=== PATIENT | male | born 1930 | race Caucasian/White ===

== ENCOUNTER 2017-04-12 07:49 | Day surgery (SDC) | payer OTHER ==
[~2017-04-12] VITALS: Ht 180.3 cm; Wt 83.5 kg
[~2017-04-12 07:49] MED LIST: ACETAMINOPHEN 325 MG TAB PO PRN; CYCLOPENTOLATE 2% OPHTH SOLN 2ML BTL OS ONE; LIDOCAINE 3.5 % 1ML OPHTH TOPICAL GEL OU ONE; OFLOXACIN 0.3 % (OCUFLOX) OPTH SOL 5ML OS ONE; OMEP20CA3 PO; PHENYLEPHRINE 2.5% OPHTH SOL 2ML OS ONE; PHENYLEPHRINE HCL 10 % OPHTH. SOL 5ML OS PRN; PROPARACAINE 0.5% OPHTH SOL 15ML OS PRN; SB L81TA; TROPICAMIDE 1% OPHTH SOLN 2ML OS ONE
[2017-04-12] MEDS ORDERED: D5W/0.2% SODIUM CHLORIDE 1,000 ML IV ONE (08:00)
[2017-04-12] MEDS ORDERED: POVIDONE-IODINE 5% OPHTH PREP SOL 30ML As Ordered ONE (08:53)
[2017-04-12] MEDS ORDERED: LIDOCAINE 1% SDV 5 ML VIAL As Ordered ONE (08:53)
[2017-04-12] MEDS ORDERED: ACETYLCHOLINE OPHTH SOLN 1% 2ML (MIOCHOL-E) As Ordered ONE (08:53)
[2017-04-12] MEDS ORDERED: CEFUROXIME 1MG/0.1ML INTRACAMERAL INJ As Ordered ONE (08:53)
[2017-04-12] MEDS ORDERED: HEALON DUET (HEALON 10MG/ML 0.55ML & HEALON ENDOCOAT 30MG/ML 0.85ML) As Ordered ONE (08:53)
[2017-04-12] MEDS ORDERED: fentaNYL 100 MCG/2 ML INJECTION (J3010) As Ordered ONE (09:06)
[2017-04-12] MEDS ORDERED: MIDAZOLAM INJ 2 MG/2 ML VIAL (J2250) As Ordered ONE (09:06)
[2017-04-12] MEDS ORDERED: AcetaZOLAMIDE 500 MG ER CAP As Ordered ONE (10:10)
[2017-04-12 10:15] VITALS: BP 162/69
[2017-04-12] MEDS ORDERED: AcetaZOLAMIDE 500 MG ER CAP PO ONE (10:45)
[2017-04-12] MEDS ORDERED: KETOROLAC 0.5% OPHTH SOLN OS ONE (10:45)
[2017-04-12] MEDS ORDERED: TRIMETHOBENZAMIDE 300 MG CAP PO PRN (10:45)
--- NOTE | 2017-04-12 17:35 | RO ---
DATE OF PROCEDURE: 04/12/2017 PREPROCEDURE DIAGNOSIS: Age-related nuclear cataract left eye. POSTPROCEDURE DIAGNOSIS: Age-related nuclear cataract left eye. PROCEDURE: Phacoemulsification and posterior chamber intraocular lens implantation. The lens used was [id number] 18.0 diopter. SURGEON: Taylor Bunn MD CLEAT THROWER: ANESTHESIA: Topical with sedation. DESCRIPTION OF PROCEDURE: The patient was prepped and draped in the usual fashion. A lid speculum was placed between the lids. The eye was fixated. A stab incision was made to the anterior chamber, and 1% non-preserved lidocaine was instilled. Then, viscoelastic was instilled. The eye was re-fixated. A 2.75 mm sapphire keratome was used to make a clear corneal temporal limbal incision. Capsulorrhexis was begun with a 30-gauge bent needle and then carried out in a circular fashion with capsulorrhexis forceps. The lens was hydrodissected, and then the phacoemulsification unit was used to make a groove in the nucleus in two meridians. The nucleus was then cracked into four quadrants. Each quadrant was removed with the phacoemulsification unit. Any remaining cortex was removed with the irrigation and aspiration (I and A) unit. Capsular bag was refilled with viscoelastic. A posterior chamber intraocular lens was placed in the capsular bag without difficulty. Any remaining viscoelastic was removed with the I and A unit. The wound was hydrated, and Miochol and cefuroxime were instilled into the anterior chamber. The patient tolerated the procedure well and went to the recovery room in stable condition.
== END 2017-04-12 10:21 | disposition home or self-care (01) ==
LOC: M SDC 07:49
PROVIDERS: ATTEND Ophthalmology
DX: H25.12 Age-related nuclear cataract, left eye (principal); K21.9 Gastro-esophageal reflux disease without esophagitis; R06.83 Snoring; Z72.0 Tobacco use; Z96.653 Presence of artificial knee joint, bilateral; Z79.899 Other long term (current) drug therapy; Z79.82 Long term (current) use of aspirin

== ENCOUNTER 2017-06-28 09:57 | Day surgery (SDC) | payer OTHER ==
[2017-06-28] MEDS: BALANCED SALT IRRIGATION SOLUTION 500ML BAG (FOR OR EYE MACHINE) As Ordered (07:05)
[~2017-06-28 09:57] MED LIST changes: +ACETAMINOPHEN 325 MG TAB PO; -ACETAMINOPHEN 325 MG TAB PO PRN; +CYCLOPENTOLATE 2% OPHTH SOLN 2ML BTL OD; -CYCLOPENTOLATE 2% OPHTH SOLN 2ML BTL OS ONE; +LIDOCAINE 3.5 % 1ML OPHTH TOPICAL GEL OU; -LIDOCAINE 3.5 % 1ML OPHTH TOPICAL GEL OU ONE; +MIDAZOLAM INJ 2 MG/2 ML VIAL (J2250) As Ordered; +OFLOXACIN 0.3 % (OCUFLOX) OPTH SOL 5ML OD; -OFLOXACIN 0.3 % (OCUFLOX) OPTH SOL 5ML OS ONE; -OMEP20CA3 PO; +PHENYLEPHRINE 2.5% OPHTH SOL 2ML OD; -PHENYLEPHRINE 2.5% OPHTH SOL 2ML OS ONE; +PHENYLEPHRINE HCL 10 % OPHTH. SOL 5ML OD; -PHENYLEPHRINE HCL 10 % OPHTH. SOL 5ML OS PRN; +PROPARACAINE 0.5% OPHTH SOL 15ML OD; -PROPARACAINE 0.5% OPHTH SOL 15ML OS PRN; -SB L81TA; +TROPICAMIDE 1% OPHTH SOLN 2ML OD; -TROPICAMIDE 1% OPHTH SOLN 2ML OS ONE; +fentaNYL 100 MCG/2 ML INJECTION (J3010) As Ordered
[2017-06-28] MEDS ORDERED: TROPICAMIDE 1% OPHTH SOLN 2ML As Ordered (10:13)
[2017-06-28] MEDS ORDERED: CYCLOPENTOLATE 2% OPHTH SOLN 2ML BTL As Ordered (10:13)
[2017-06-28] MEDS ORDERED: PHENYLEPHRINE 2.5% OPHTH SOL 2ML As Ordered (10:13)
[2017-06-28] MEDS ORDERED: OFLOXACIN 0.3 % (OCUFLOX) OPTH SOL 5ML As Ordered (10:13)
[2017-06-28] MEDS: LIDOCAINE 3.5 % 1ML OPHTH TOPICAL GEL OU (10:28)
[2017-06-28] MEDS: OFLOXACIN 0.3 % (OCUFLOX) OPTH SOL 5ML OD (10:28)
[2017-06-28] MEDS: TROPICAMIDE 1% OPHTH SOLN 2ML OD (10:29)
[2017-06-28] MEDS: PHENYLEPHRINE 2.5% OPHTH SOL 2ML OD (10:30)
[2017-06-28] MEDS ORDERED: LIDOCAINE 1% MDV 20ML VIAL SQ (10:30)
[2017-06-28] MEDS: CYCLOPENTOLATE 2% OPHTH SOLN 2ML BTL OD (10:30)
[2017-06-28] MEDS: POVIDONE-IODINE 5% OPHTH PREP SOL 30ML As Ordered (11:21)
[2017-06-28] MEDS: LIDOCAINE 1% SDV 5 ML VIAL As Ordered (11:26)
[2017-06-28] MEDS: CEFUROXIME 1MG/0.1ML INTRACAMERAL INJ As Ordered (11:26)
[2017-06-28] MEDS: HEALON DUET (HEALON 10MG/ML 0.55ML & HEALON ENDOCOAT 30MG/ML 0.85ML) As Ordered (11:26)
[2017-06-28] MEDS ORDERED: TRIMETHOBENZAMIDE 300 MG CAP PO (12:00)
[2017-06-28] MEDS ORDERED: AcetaZOLAMIDE 500 MG ER CAP PO (12:00)
[2017-06-28] MEDS ORDERED: KETOROLAC 0.5% OPHTH SOLN OD (12:00)
== END 2017-06-28 12:08 | disposition home or self-care (01) ==
LOC: M SDC 09:57
DX: H25.11 Age-related nuclear cataract, right eye (principal); K21.9 Gastro-esophageal reflux disease without esophagitis; M19.90 Unspecified osteoarthritis, unspecified site; Z79.899 Other long term (current) drug therapy; Z79.82 Long term (current) use of aspirin; F17.200 Nicotine dependence, unspecified, uncomplicated
CPT/HCPCS: 66984

== ENCOUNTER 2017-09-16 14:42 | Emergency (ER) | payer OTHER ==
[2017-09-16 15:21] LABS: BASO % 0.8 % (0.0-1.0); EOS # 0.3 10^3/uL (0.0-0.50); HEMATOCRIT 35.9 % (42.0-52.0); HEMOGLOBIN 10.9 g/dl (13.5-17.5); IMMATURE GRANULOCYTE % 0.2 % (0-3.0); LYMPH # 2.3 10^3/uL (1.5-4.5); LYMPH % 43.8 % (24.0-44.0); MEAN CORPUSCULAR HEMOGLOBIN 23.5 pg (27.0-33.0); MEAN CORPUSCULAR HGB CONC 30.4 g/dl (32.0-36.5); MEAN CORPUSCULAR VOLUME 77.5 fl (80.0-96.0); MONO # 0.5 10^3/uL (0.0-0.8); MONO % 8.6 % (0.0-5.0); NEUTROPHILS # 2.2 10^3/uL (1.8-7.7); NEUTROPHILS % 41.6 % (36.0-66.0); PLATELET COUNT, AUTOMATED 237 10^3/uL (150-450); RED BLOOD COUNT 4.63 10^6/uL (4.30-6.10); RED CELL DISTRIBUTION WIDTH 16.6 % (11.5-14.5); WHITE BLOOD COUNT 5.3 10^3/uL (4.0-10.0)
[2017-09-16 15:33] LABS: INR 1.03; PARTIAL THROMBOPLASTIN TIME 29.6 SECONDS (26.8-37.9); PROTHROMBIN TIME 13.6 SECONDS (12.4-14.5)
[2017-09-16] MEDS: ASPIRIN 325 MG TAB PO (15:54)
[2017-09-16] MEDS: GI COCKTAIL 50ML BTL(HYOSCYAMINE/MAALOX/LIDOCAINE VISCOUS)(1:3:1) PO (15:54)
[2017-09-16 15:57] LABS: ALBUMIN 3.9 GM/DL (3.2-5.2); ALBUMIN/GLOBULIN RATIO 0.98 (1.00-1.93); ALKALINE PHOSPHATASE 61 U/L (45-117); ALT/SGPT 14 U/L (12-78); ANION GAP 8 MEQ/L (8-16); AST/SGOT 15 U/L (7-37); BILIRUBIN,DIRECT < 0.1 MG/DL (0.0-0.2); BILIRUBIN,TOTAL 0.4 MG/DL (0.2-1.0); BLOOD UREA NITROGEN 21 MG/DL (7-18); CALCIUM LEVEL 8.9 MG/DL (8.8-10.2); CARBON DIOXIDE LEVEL 25 MEQ/L (21-32); CHLORIDE LEVEL 108 MEQ/L (98-107); CPK CREATINE PHOSPHOKINASE 95 U/L (39-308); CREATININE FOR GFR 1.16 MG/DL (0.70-1.30); GLOMERULAR FILTRATION RATE > 60.0 (>35); GLUCOSE, FASTING 89 MG/DL (70-100); LIPASE 178 U/L (73-393); SODIUM LEVEL 141 MEQ/L (136-145); TOTAL PROTEIN 7.9 GM/DL (6.4-8.2); TROPONIN I < 0.02 NG/ML (< 0.10)
[2017-09-16 15:58] LABS: MB/CK RELATIVE INDEX 1.05 (< OR =4)
[2017-09-16] MEDS: LABETALOL HCL 100 MG/20 ML VIAL IV (15:59)
[2017-09-16] MEDS: MORPHINE 4 MG/ML 1ML VIAL/SYRINGE (J2270) IV (16:22)
[2017-09-16 17:49] LABS: CK-MB VALUE MASS < 1.0 NG/ML (<3.6); CPK CREATINE PHOSPHOKINASE 91 U/L (39-308); MB/CK RELATIVE INDEX 1.09 (< OR =4); TROPONIN I < 0.02 NG/ML (< 0.10)
== END 2017-09-16 18:36 | disposition home or self-care (01) ==
LOC: M ED 14:42
DX: R10.9 Unspecified abdominal pain (principal); R00.1 Bradycardia, unspecified; K21.9 Gastro-esophageal reflux disease without esophagitis; Z79.899 Other long term (current) drug therapy
CPT/HCPCS: J2270

== ENCOUNTER 2019-01-25 13:15 | Emergency (ER) | payer MEDICARE, OTHER ==
[~2019-01-25] VITALS: Ht 180.3 cm; Wt 81.8 kg
[~2019-01-25 13:15] MED LIST changes: -ACETAMINOPHEN 325 MG TAB PO; +ASPI-163; +ASPI81TA26 PO; +Acetaminophen Tab PO; -CYCLOPENTOLATE 2% OPHTH SOLN 2ML BTL OD; -LIDOCAINE 3.5 % 1ML OPHTH TOPICAL GEL OU; +LOMO2.5T PO; -MIDAZOLAM INJ 2 MG/2 ML VIAL (J2250) As Ordered; -OFLOXACIN 0.3 % (OCUFLOX) OPTH SOL 5ML OD; +OMEP20CA4 PO; +PERC5TAB12 PO; -PHENYLEPHRINE 2.5% OPHTH SOL 2ML OD; -PHENYLEPHRINE HCL 10 % OPHTH. SOL 5ML OD; -PROPARACAINE 0.5% OPHTH SOL 15ML OD; -TROPICAMIDE 1% OPHTH SOLN 2ML OD; +ZOFR4TAB14 PO; -fentaNYL 100 MCG/2 ML INJECTION (J3010) As Ordered
[2019-01-25 13:16] VITALS: BP 167/79
[2019-01-25] MEDS ORDERED: TETANUS/DIPHTHERIA TOX ADSORB ADULT 0.5ML SYR/VIAL (90714) IM ONE (14:00)
== END 2019-01-25 14:39 | disposition home or self-care (01) ==
LOC: M ED 13:15
DX: S90.822A Blister (nonthermal), left foot, initial encounter (principal); X58.XXXA Exposure to other specified factors, initial encounter; Y92.89 Other specified places as the place of occurrence of the external cause; Z79.899 Other long term (current) drug therapy; F17.210 Nicotine dependence, cigarettes, uncomplicated

== ENCOUNTER 2019-07-24 07:10 | Day surgery (SDC) | payer MEDICARE ==
[~2019-07-24] VITALS: Ht 180.3 cm; Wt 80.7 kg
[~2019-07-24 07:10] MED LIST changes: +LR 1,000 ML IV ONE; +OMEP1CAP73 PO; -OMEP20CA4 PO
[2019-07-24] MEDS ORDERED: propofoL 200 MG/20 ML VIAL As Ordered ONE (07:18)
[2019-07-24] MEDS ORDERED: LIDOCAINE 2% INJ 100 MG/5 ML SDV (FOR ANES.) As Ordered ONE (07:18)
--- NOTE | 2019-07-24 09:50 | ROOR ---
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 Providers: Juventino Humphrey MD Referring MD: 1. No Referring Physician 1. No Referring Physician, Admin. Requesting Provider: Medicines: Monitored Anesthesia Care Complications: No immediate complications. Procedure: Pre-Anesthesia Assessment: - Prior to the procedure, a History and Physical was performed, and patient medications and allergies were reviewed. The patient is competent. The risks and benefits of the procedure and the sedation options and risks were discussed with the patient. All questions were answered and informed consent was obtained. Patient identification and proposed procedure were verified by the physician and the digester operator helper in the procedure room. Mental Status Examination: alert and oriented. Airway Examination: normal oropharyngeal airway and neck mobility. Prophylactic Antibiotics: The patient does not require prophylactic antibiotics. Prior Anticoagulants: The patient has taken no previous anticoagulant or antiplatelet agents. ASA Grade Assessment: II - A patient with mild systemic disease. After reviewing the risks and benefits, the patient was deemed in satisfactory condition to undergo the procedure. The anesthesia plan was to use monitored anesthesia care (MAC). Immediately prior to administration of medications, the patient was re-assessed for adequacy to receive sedatives. The heart rate, respiratory rate, oxygen saturations, blood pressure, adequacy of pulmonary ventilation, and response to care were monitored throughout the procedure. The physical status of the patient was re-assessed after the procedure. The Colonoscope was introduced through the anus and advanced to the cecum, identified by appendiceal orifice and ileocecal valve. The colonoscopy was performed without difficulty. The patient tolerated the procedure well. The quality of the bowel preparation was excellent. Findings: Hemorrhoids were found on perianal exam. There was evidence of a prior end-to-end colo-rectal anastomosis at 17 cm proximal to the anus. This was patent and was characterized by healthy appearing mucosa. The anastomosis was traversed. Two sessile polyps were found in the cecum. The polyps were 10 to 15 mm in size. These polyps were removed with a piecemeal technique using a hot snare. Resection and retrieval were complete. Estimated blood loss: none. The exam was otherwise without abnormality. Impression: - Hemorrhoids found on perianal exam. - Patent end-to-end colo-rectal anastomosis, characterized by healthy appearing mucosa. - Two 10 to 15 mm polyps in the cecum, removed piecemeal using a hot snare. Resected and retrieved. - The examination was otherwise normal. Recommendation: - Discharge patient to home. - Resume previous diet. - Continue present medications. - Telephone my office for pathology results in 1 week. Juventino Humphrey MD Juventino Humphrey MD 07/24/2019 9:50:17 AM Electronically signed by Juventino Humphrey MD Number of Addenda: 0 Note Initiated On: 07/24/2019 8:14 AM Estimated Blood Loss: Estimated blood loss: none.
[2019-07-24 10:15] VITALS: BP 122/72
== END 2019-07-24 11:00 | disposition home or self-care (01) ==
LOC: M OPP 07:10
PROVIDERS: ATTEND Surgery
DX: Z08 Encounter for follow-up examination after completed treatment for malignant neoplasm (principal); D12.0 Benign neoplasm of cecum; K64.9 Unspecified hemorrhoids; E78.00 Pure hypercholesterolemia, unspecified; K21.9 Gastro-esophageal reflux disease without esophagitis; Z98.0 Intestinal bypass and anastomosis status; Z85.038 Personal history of other malignant neoplasm of large intestine; Z79.899 Other long term (current) drug therapy; F17.210 Nicotine dependence, cigarettes, uncomplicated

== ENCOUNTER 2020-01-11 11:29 | Inpatient (IN) | payer MEDICARE ==
[~2020-01-11] VITALS: Ht 182.9 cm; Wt 81.2 kg
[~2020-01-11 11:29] MED LIST changes: -LR 1,000 ML IV ONE
[2020-01-11] MEDS ORDERED: NS 1,000 ML IV SCH (12:15)
[2020-01-11] MEDS ORDERED: IPRATROPIUM 0.5MG/ALBUTEROL 2.5MG INH SOL UD 3ML (DUONEB) NEB ONE (12:15)
[2020-01-11] MEDS ORDERED: AZITHROMYCIN INJ 500 MG, VIAL MATE ADAPTER 1 EACH in D5W 250 ML IV ONE (12:45)
[2020-01-11] MEDS ORDERED: cefTRIAXone SOD 1 GM in D5W MINI-BAG PLUS 50 ML IV ONE (12:45)
[2020-01-11 12:46] LABS: VENOUS BASE EXCESS -1.9 (-2.0-2.0); VENOUS O2 SATURATION 69.9 % (60.0-80.0); VENOUS PARTIAL PRESSURE CO2 39.8 mmHg (38.0-50.0); VENOUS PARTIAL PRESSURE O2 36.3 mmHg (30.0-50.0); VENOUS STANDARD HCO3 22.3 MEQ/L; VENOUS TOTAL CO2 24.2 MEQ/L (24.0-28.0)
[2020-01-11 12:51] LABS: HEMATOCRIT 39.1 % (42.0-52.0); HEMOGLOBIN 12.6 g/dl (13.5-17.5); MEAN CORPUSCULAR HEMOGLOBIN 27.5 pg (27.0-33.0); MEAN CORPUSCULAR HGB CONC 32.2 g/dl (32.0-36.5); MEAN CORPUSCULAR VOLUME 85.4 fl (80.0-96.0); PLATELET COUNT, AUTOMATED 272 10^3/uL (150-450); RED BLOOD COUNT 4.58 10^6/uL (4.30-6.10); WHITE BLOOD COUNT 5.2 10^3/uL (4.0-10.0)
[2020-01-11 13:03] LABS: INR 1.21; PROTHROMBIN TIME 15.5 SECONDS (12.5-14.3)
[2020-01-11 13:12] LABS: ALBUMIN 2.7 GM/DL (3.2-5.2); BILIRUBIN,DIRECT 0.7 MG/DL (0.0-0.2); BILIRUBIN,TOTAL 1.3 MG/DL (0.2-1.0); CALCIUM LEVEL 8.7 MG/DL (8.8-10.2); CREATININE FOR GFR 1.41 MG/DL (0.70-1.30); GLOMERULAR FILTRATION RATE 50.4 (>35); POTASSIUM SERUM 3.7 MEQ/L (3.5-5.1); TOTAL PROTEIN 7.1 GM/DL (6.4-8.2)
--- NOTE | 2020-01-11 13:28 | REPVR ---
PROCEDURE INFORMATION: Exam: CT Chest Without Contrast Exam date and time: 01/11/2020 12:34 PM Age: 89 years old Clinical indication: Shortness of breath; Additional info: SOB pneumonia vs pneumo TECHNIQUE: Imaging protocol: Computed tomography of the chest without contrast. 3D rendering (Not supervised by radiologist): MIP and/or 3D reconstructed images were created by the technologist. Radiation optimization: All CT scans at this facility use at least one of these dose optimization techniques: automated exposure control; mA and/or kV adjustment per patient size (includes targeted exams where dose is matched to clinical indication); or iterative reconstruction. COMPARISON: CR Chest, 2 view PA, Lat 09/16/2017 3:18 PM FINDINGS: Lungs: Multifocal peribronchial airspace opacities and nodules are present throughout the left upper lobe and lingula. There is partial collapse of the left lower lobe with retraction of the oblique fissure, although with multiple air bronchograms and loculated opacities within the otherwise collapsed lower lobe. Pleural space: Small left pleural effusion. Heart: Aortic annular and coronary artery calcifications are present. Mediastinal space: Secretions layer in the trachea. Aorta: Moderate aortic and branch vessel atherosclerosis. Lymph nodes: No enlarged lymph nodes. Bones/joints: No severe osseous spinal canal stenosis. Multilevel overall moderate degenerative findings. Soft tissues: There is a 1.5 cm anterior chest wall cutaneous cyst overlying the manubrium. IMPRESSION: 1. Multifocal pneumonia throughout the left lung, possibly aspiration related given the layering tracheal secretions. Additionally, there is near complete atelectatic collapse of the left lower lobe with heterogeneous attenuation and loculated appearance which likely represents a superimposed lobar pneumonia, with a small parapneumonic effusion. 2. Recommend follow-up chest CT after treatment given extent of nodularity to assess for interval resolution. Electronically signed by: Imer Avila On 01/11/2020 13:27:46 PM
[2020-01-11] MEDS ORDERED: guaiFENesin SYRUP 200 MG/10 ML UDC PO PRN (13:45)
[2020-01-11] MEDS ORDERED: MOM 30ML SUSPENSION UDC PO PRN (13:45)
[2020-01-11] MEDS ORDERED: ACETAMINOPHEN TAB 650MG DOSE (2X325MG) PO PRN (13:45)
--- NOTE | 2020-01-11 14:53 | HPEPDOC ---
[facility] Medical History & Physical Date of Admission Jan 11, 2020 Date of Service: Jan 11, 2020 History and Physical CHIEF COMPLAINT: Shortness of breath HISTORY OF PRESENT ILLNESS: 89-year-old male with no known past medical presents to [facility] after starting to feel SOB on Monday which has gotten progressively worse during the course of the week. Since he started feeling a little disoriented and getting dizzy spells. He endorses a cough with yellow sputum. He endorses subjective fevers at home and chills. In the ED patient was started on IV antibiotics and IV fluids. Blood cultures were obtained. Patient will be admitted to the medical unit for further workup and treatment. PAST MEDICAL HISTORY: GERD for which he takes omeprazole PAST SURGICAL HISTORY: Partial colectomy 2 years ago after SBO. SOCIAL HISTORY: Patient lives in an assisted living facility. He drinks alcohol every few weeks last drink was one week ago. He denies use of illicit drugs. He smokes one quarter pack per day tobacco over the past 50 years. FAMILY HISTORY: Noncontributory ALLERGIES: Please see below. REVIEW OF SYSTEMS: Constitutional: No sweating or weight loss. Endorses some chills. Subjective fevers. Eyes: No eye pain or acute blurred vision HENT: No complaints of headache or sore throat Cadiovascular: No Chest pain or palpitations Pulm: Per HPI Gastrointestinal: No N/V, no abdominal pain. Genitourinary: No dysuria or hematuria Musculoskeletal: No back pain or joint pain Skin: No rash or jaundice Neurological: Some weakness HOME MEDICATIONS: Please see below. PHYSICAL EXAMINATION: Constitutional: Awake and alert, in no apparent distress ENT: Sclera are clear. Mucosa is moist. Respiratory: CTA bilaterally on the right side. Diffuse rhonchi throughout left lung and diminished lung sounds. No respiratory distress. No use of accessory muscles. Cardiovascular: RRR S1 and S2 are normal, no murmur Gastrointestinal: Abdomen is soft, non distended, non tender, BS present. Musculoskeletal: No edema. No joint deformities. RUE 5/5, LUE 5/5, BLE 5/5 Neurologic: No focal neurological deficit. Mental Status: A&O x3, normal affect Skin: Warm, dry LABORATORY DATA: See below. IMAGIN. Multifocal pneumonia throughout the left lung, possibly aspiration related given the layering tracheal secretions. Additionally, there is near complete atelectatic collapse of the left lower lobe with heterogeneous attenuation and loculated appearance which likely represents a superimposed lobar pneumonia, with a small parapneumonic effusion. 2. Recommend follow-up chest CT after treatment given extent of nodularity to assess for interval resolution. MICROBIOLOGY: Please see below. A/P 89-year-old male with past medical history of GERD presents with shortness of breath. Found to have an extensive left-sided pneumonia on CT with possible aspiration. Patient was admitted to the medical unit for medical evaluation and treatment. # CAP with possible aspiration: - IV Azithromycin and Ceftriaxone for CAP including atypical coverage. As well as IV metronidazole for possible aspiration. - CT chest reviewed. Obtain follow-up CT to assess for interval resolution after clinical improvement. - WBC ok. lactate ok. No fevers. - EKG for qtc - PRN Duonebs q4h - BCx, UCx, sputum culture - Urine strep Ag and Legionella - NS @ 100 - Robitussin Q4H. - Urinalysis - Tylenol PRN fever. # ANEL vs CKD: IVFs. Monitor. Avoid nephrotoxins. # GERD: Can continue home omeprazole. # DVT prophylaxis: Heparin A [facility] Hospitalist Vital Signs Vital Signs Date Time Temp Pulse Resp B/P (MAP) Pulse Ox O2 Delivery O2 Flow Rate FiO2 01/11/20 12:44 96 16 01/11/20 12:38 Room Air 01/11/20 11:45 01/11/20 11:30 99.1 96 Laboratory Data Labs 24H Laboratory Tests 2 01/11/20 12:33: Prothrombin Time 15.5H, Prothromb Time International Ratio 1.21 01/11/20 12:34: Nucleated Red Blood Cells % (auto) 0.0, Blood Gas Bicarbonate Standard 22.3, Venous Blood pH 7.380, Venous Blood Partial Pressure CO2 39.8, Venous Blood Partial Pressure O2 36.3, Venous Blood Total Carbon Dioxide 24.2, Venous Blood HCO3 23.0, Venous Blood Oxygen Saturation 69.9, Venous Blood Base Excess -1.9, Anion Gap 7L, Glomerular Filtration Rate 50.4, Lactic Acid Level 1.3, Calcium Level 8.7L, Total Bilirubin 1.3H, Direct Bilirubin 0.7H, Aspartate Amino Transf (AST/SGOT) 51H, Alanine Aminotransferase (ALT/SGPT) 40, Alkaline Phosphatase 105, Total Protein 7.1, Albumin 2.7L, Albumin/Globulin Ratio 0.6 CBC/BMP Laboratory Tests 01/11/20 12:34 Microbiology Microbiology 01/11/20 Respiratory Virus Panel (PCR) (KOBE), Received Pending 01/11/20 Blood Culture, Received Pending Home Medications Scheduled Omeprazole (Omeprazole) 20 Mg Cap, 20 MG PO DAILY Allergies Coded Allergies: No Known Allergies (Verified , 07/24/19) A-FIB/CHADSVASC A-FIB History Current/History of A-Fib/PAF?: No SHEA CATALAN MD Jan 11, 2020 14:53
[2020-01-11] MEDS ORDERED: metroNIDAZOLE 500 MG in IV 1 EA IV SCH (15:00)
[2020-01-11] MEDS ORDERED: IPRATROPIUM 0.5MG/ALBUTEROL 2.5MG INH SOL UD 3ML (DUONEB) NEB PRN (15:00)
[2020-01-11 15:34] VITALS: BP 129/64
[2020-01-11] MEDS: HEPARIN SOD (PORCINE) 5000UNITS/ML 1ML VIAL/SYRINGE SC SCH ×2 (15:53→22:56)
[2020-01-11] MEDS: metroNIDAZOLE 500 MG in IV 1 EA IV SCH (17:20)
[2020-01-11] MEDS: NS 1,000 ML IV SCH ×2 (17:20→22:56)
[2020-01-11 22:00] VITALS: BP 125/62
[2020-01-12] MEDS: HEPARIN SOD (PORCINE) 5000UNITS/ML 1ML VIAL/SYRINGE SC SCH ×3 (05:18→21:23)
[2020-01-12] MEDS: metroNIDAZOLE 500 MG in IV 1 EA IV SCH ×2 (05:18→16:22)
[2020-01-12 06:00] VITALS: BP 123/67
[2020-01-12 06:18] LABS: HEMOGLOBIN 11.1 g/dl (13.5-17.5); MEAN CORPUSCULAR HEMOGLOBIN 27.9 pg (27.0-33.0); MEAN CORPUSCULAR HGB CONC 32.6 g/dl (32.0-36.5); MEAN CORPUSCULAR VOLUME 85.4 fl (80.0-96.0); PLATELET COUNT, AUTOMATED 251 10^3/uL (150-450); RED BLOOD COUNT 3.98 10^6/uL (4.30-6.10); WHITE BLOOD COUNT 4.6 10^3/uL (4.0-10.0)
[2020-01-12 06:38] LABS: BLOOD UREA NITROGEN 17 MG/DL (7-18); CALCIUM LEVEL 8.1 MG/DL (8.8-10.2); CARBON DIOXIDE LEVEL 20 MEQ/L (21-32); CHLORIDE LEVEL 111 MEQ/L (98-107); CREATININE FOR GFR 1.02 MG/DL (0.70-1.30); GLOMERULAR FILTRATION RATE > 60.0 (>35); GLUCOSE, FASTING 98 MG/DL (70-100); POTASSIUM SERUM 3.6 MEQ/L (3.5-5.1); SODIUM LEVEL 140 MEQ/L (136-145)
[2020-01-12 08:09] LABS: AMORPHOUS SEDIMENT SMALL (NEGATIVE); APPEARANCE, URINE CLEAR (CLEAR); BACTERIA, URINE AUTO NEGATIVE (NEGATIVE); BILIRUBIN, URINE AUTO NEGATIVE (NEGATIVE); BLOOD, URINE BLOOD 2+ (NEGATIVE); COLOR, URINE AMBER (YELLOW); GLUCOSE, URINE (UA) AUTO 1+ mg/dL (NEGATIVE); KETONE, URINE AUTO 1+ mg/dL (NEGATIVE); LEUKOCYTE ESTERASE, URINE AUTO NEGATIVE (NEGATIVE); MUCUS, URINE SMALL (NEGATIVE); NITRITE, URINE AUTO NEGATIVE (NEGATIVE); PROTEIN, URINE AUTO 1+ mg/dL (NEGATIVE); RBC, URINE AUTO 4 /HPF (0-3); SPECIFIC GRAVITY URINE AUTO 1.027 (1.002-1.035); SQUAMOUS EPITHELIAL CELL UR AU 0 /HPF (0-6); WBC, URINE AUTO 1 /HPF (0-3)
[2020-01-12] MEDS: OMEPRAZOLE 20 MG CAP PO SCH (09:26)
[2020-01-12] MEDS: NS 1,000 ML IV SCH ×2 (12:17→21:22)
[2020-01-12] MEDS: cefTRIAXone SOD 1 GM in D5W MINI-BAG PLUS 50 ML IV SCH (13:09)
[2020-01-12] MEDS: AZITHROMYCIN INJ 500 MG, VIAL MATE ADAPTER 1 EACH in D5W 250 ML IV SCH (14:46)
--- NOTE | 2020-01-12 17:42 | IPNPDOC ---
Text Note Date of Service The patient was seen on 01/12/20. NOTE 89-year-old male with past medical history of GERD presents with shortness of breath. Found to have an extensive left-sided pneumonia on CT with possible aspiration. Patient was admitted to the medical unit for medical evaluation and treatment. Subjective Patient was seen and examined at bedside this morning. He definitely is doing much better and breathing easier. Tells me his cough is a little bit better and his mucus is more broken off them before. There was no overnight events. I watched him get up and walk to the bathroom without any trouble. He reports no fevers today nor feeling chills or shakes. # CAP with possible aspiration: Improved. - IV Azithromycin and Ceftriaxone for CAP including atypical coverage. As well as IV metronidazole for possible aspiration. - CT chest reviewed. Obtain follow-up CT to assess for interval resolution after clinical improvement. Obtain CT 01/12. - WBC ok. lactate ok. - EKG for qtc - PRN Duonebs q4h - BCx, UCx, sputum culture - Urine strep Ag and Legionella - NS @ 100 - Robitussin Q4H. - Urinalysis - Tylenol PRN fever. # ANEL: Resolved. IVFs. Monitor. Avoid nephrotoxins. # GERD: Can continue home omeprazole. # DVT prophylaxis: Heparin A [facility]ist Kathy DUNCAN I+O Kathy DUNCAN I+O Laboratory Tests 01/12/20 05:30 Vital Signs Date Time Temp Pulse Resp B/P (MAP) Pulse Ox O2 Delivery O2 Flow Rate FiO2 01/12/20 06:00 99.4 96 18 123/67 (85) 94 Room Air I&O- Last 24 Hours up to 6 AM 01/12/20 06:00 Intake Total 2270 ml Output Total 675 ml Balance 1595 ml SHEA CATALAN MD Jan 12, 2020 17:42
--- NOTE | 2020-01-12 19:56 | ECGEPIP ---
[facility] Test Date: 2020-01-12 Pat Name: THANH CULP Department: Room: [place] [address] Gender: Male [employer]: : 1930 Requested By: SHEA Peraza Order Number: [id number] Reading MD: Ji Smart Measurements Intervals [place] Rate: 81 P: -7 MD: 178 QRS: 13 QRSD: 105 T: 11 QT: 361 QTc: 420 Interpretive Statements Normal sinus rhythm with PACs Normal EKG otherwise No significant change when compared to prior tracing of 09/16/2017 Electronically Signed on 01-12-2020 19:55:39 EDT by Ji Smart
[2020-01-12 22:00] VITALS: BP 129/57
[2020-01-13] MEDS: metroNIDAZOLE 500 MG in IV 1 EA IV SCH ×2 (05:29→17:21)
[2020-01-13] MEDS: NS 1,000 ML IV SCH ×3 (05:29→21:27)
[2020-01-13] MEDS: HEPARIN SOD (PORCINE) 5000UNITS/ML 1ML VIAL/SYRINGE SC SCH ×3 (05:29→21:28)
[2020-01-13 06:00] VITALS: BP 140/88
[2020-01-13 06:18] LABS: HEMATOCRIT 33.1 % (42.0-52.0); HEMOGLOBIN 10.8 g/dl (13.5-17.5); MEAN CORPUSCULAR HEMOGLOBIN 27.8 pg (27.0-33.0); MEAN CORPUSCULAR HGB CONC 32.6 g/dl (32.0-36.5); MEAN CORPUSCULAR VOLUME 85.3 fl (80.0-96.0); PLATELET COUNT, AUTOMATED 251 10^3/uL (150-450); RED BLOOD COUNT 3.88 10^6/uL (4.30-6.10)
[2020-01-13 06:45] LABS: BLOOD UREA NITROGEN 13 MG/DL (7-18); CARBON DIOXIDE LEVEL 21 MEQ/L (21-32); CHLORIDE LEVEL 112 MEQ/L (98-107); CREATININE FOR GFR 0.82 MG/DL (0.70-1.30); GLOMERULAR FILTRATION RATE > 60.0 (>35); GLUCOSE, FASTING 94 MG/DL (70-100); POTASSIUM SERUM 3.5 MEQ/L (3.5-5.1); SODIUM LEVEL 140 MEQ/L (136-145)
--- NOTE | 2020-01-13 08:25 | REPVR ---
PROCEDURE INFORMATION: Exam: CT Chest Without Contrast Exam date and time: 01/13/2020 6:00 AM Age: 89 years old Clinical indication: Abnormal findings; Abnormal radiologic exam of lung or chest; Additional info: Interval follow-up. Please attempt to complete Monday billnin TECHNIQUE: Imaging protocol: Computed tomography of the chest without contrast. 3D rendering (Not supervised by radiologist): MIP and/or 3D reconstructed images were created by the technologist. Radiation optimization: All CT scans at this facility use at least one of these dose optimization techniques: automated exposure control; mA and/or kV adjustment per patient size (includes targeted exams where dose is matched to clinical indication); or iterative reconstruction. COMPARISON: CT Chest without contrast 01/11/2020 12:30 PM FINDINGS: Limitations: Examination is limited by motion artifact. Tracheobronchial tree: Mucous impaction of the left lower lobe bronchi. Lungs: Mild multifocal consolidations in the left upper lobe. More dense consolidation in the lingula. Dense consolidation of the left lower lobe with some areas of air bronchograms. Pleural space: Moderate left pleural effusion. No right pleural effusion. No pneumothorax. Heart: No cardiomegaly. Mild pericardial effusion. Coronary arteries: Severe coronary artery calcification. Aorta: Moderate calcified atherosclerotic disease. No aortic aneurysm. Lymph nodes: Multiple small mediastinal nodes. Bones/joints: Moderate degenerative spine. No acute fracture. Mild degenerative changes of the left shoulder. Soft tissues: Sebaceous cyst in the subcutaneous tissue anterior to the manubrium Sebaceous cyst in the subcutaneous tissue anterior to the manubrium measuring 1.3 x 1.8 x 2.0 cm. IMPRESSION: 1. Consolidations as described. 2. Mucous impaction of the left lower lobe bronchi. 3. Moderate left pleural effusion. Increased from prior. 4. Additional findings as described. Electronically signed by: Yenny Luque On 01/13/2020 08:24:41 AM
[2020-01-13] MEDS: OMEPRAZOLE 20 MG CAP PO SCH (09:56)
--- NOTE | 2020-01-13 12:19 | IPNPDOC ---
Text Note Date of Service The patient was seen on 01/13/20. NOTE Subjective Patient was seen and examined at bedside this morning. Tells me his cough is much better than before and he has no trouble breathing. He doesn't feel short of breath. He denies any chest pain or palpitations. There was no overnight events. I observed him walking around his room. He reports no fevers today nor feeling chills or shakes. Objective Constitutional: Awake and alert, in no apparent distress ENT: Sclera are clear. Mucosa is moist. Respiratory: CTA bilaterally on the right side. Diffuse rhonchi throughout left lung almost resolved from yesterday. No respiratory distress. No use of accessory muscles. Cardiovascular: RRR S1 and S2 are normal, no murmur Gastrointestinal: Abdomen is soft, non distended, non tender, BS present. Musculoskeletal: No edema. No joint deformities. RUE 5/5, LUE 5/5, BLE 5/5 Neurologic: No focal neurological deficit. Mental Status: A&O x3, normal affect Skin: Warm, dry Assessment/plan # CAP with possible aspiration: Improved. - IV Azithromycin and Ceftriaxone for CAP including atypical coverage. As well as IV metronidazole for possible aspiration. - CT chest reviewed. Obtain follow-up CT to assess for interval resolution after clinical improvement. Obtain CT 01/12 pending read. - WBC ok. lactate ok. - EKG for qtc 420 - PRN Duonebs q4h - BCx, UCx, sputum culture - Urine strep Ag and Legionella - NS @ 100 - Robitussin Q4H. - Urinalysis - Tylenol PRN fever. # ANEL: Resolved. IVFs. Monitor. Avoid nephrotoxins. # GERD: Can continue home omeprazole. # DVT prophylaxis: Heparin Disposition: Obtain interval follow-up CT today. Patient is doing clinically much better. I anticipate he should be well enough to go home tomorrow. A [facility]ist Kathy DUNCAN, I+O Kathy DUNCAN I+O Laboratory Tests 01/13/20 05:34 Vital Signs Date Time Temp Pulse Resp B/P (MAP) Pulse Ox O2 Delivery O2 Flow Rate FiO2 01/13/20 06:00 99.0 96 18 140/88 (105) 96 Room Air I&O- Last 24 Hours up to 6 AM 9/28/20 06:00 Intake Total 3400 ml Output Total 552 ml Balance 2848 ml SHEA CATALAN MD Jan 13, 2020 12:19
[2020-01-13] MEDS: cefTRIAXone SOD 1 GM in D5W MINI-BAG PLUS 50 ML IV SCH (12:24)
[2020-01-13 14:00] VITALS: BP 116/64
[2020-01-13] MEDS: AZITHROMYCIN INJ 500 MG, VIAL MATE ADAPTER 1 EACH in D5W 250 ML IV SCH (14:59)
[2020-01-13 22:00] VITALS: BP 134/65
[2020-01-14] MEDS: metroNIDAZOLE 500 MG in IV 1 EA IV SCH ×2 (05:25→17:10)
[2020-01-14] MEDS: HEPARIN SOD (PORCINE) 5000UNITS/ML 1ML VIAL/SYRINGE SC SCH ×3 (05:25→21:10)
[2020-01-14 06:00] VITALS: BP 133/67
[2020-01-14 06:06] LABS: HEMATOCRIT 35.3 % (42.0-52.0); HEMOGLOBIN 11.3 g/dl (13.5-17.5); MEAN CORPUSCULAR HEMOGLOBIN 27.6 pg (27.0-33.0); MEAN CORPUSCULAR VOLUME 86.3 fl (80.0-96.0); PLATELET COUNT, AUTOMATED 291 10^3/uL (150-450); RED BLOOD COUNT 4.09 10^6/uL (4.30-6.10); WHITE BLOOD COUNT 5.5 10^3/uL (4.0-10.0)
[2020-01-14 06:27] LABS: BLOOD UREA NITROGEN 11 MG/DL (7-18); CARBON DIOXIDE LEVEL 23 MEQ/L (21-32); CHLORIDE LEVEL 112 MEQ/L (98-107); CREATININE FOR GFR 0.85 MG/DL (0.70-1.30); GLOMERULAR FILTRATION RATE > 60.0 (>35); GLUCOSE, FASTING 93 MG/DL (70-100); POTASSIUM SERUM 3.7 MEQ/L (3.5-5.1); SODIUM LEVEL 143 MEQ/L (136-145)
[2020-01-14] MEDS: OMEPRAZOLE 20 MG CAP PO SCH (08:51)
[2020-01-14] MEDS: cefTRIAXone SOD 1 GM in D5W MINI-BAG PLUS 50 ML IV SCH (13:20)
--- NOTE | 2020-01-14 13:43 | IPNPDOC ---
Date Seen The patient was seen on 01/14/20. Progress Note SUBJECTIVE: Patient was seen and examined at bedside this morning. Does not report subjective chills. He also denies chest pain, shortness of breath, cough, nausea, vomiting and diarrhea. No acute overnight events per nurse. He remains afebrile. Vital signs stable. OBJECTIVE PHYSICAL EXAMINATION: VITAL SIGNS: Please see below. Constitutional: Awake and alert, in no apparent distress ENT: Sclera are clear. Mucosa is moist. Respiratory: CTA bilaterally on the right side. Diffuse rhonchi throughout left lung almost resolved from yesterday. No respiratory distress. No use of accessory muscles. Cardiovascular: RRR S1 and S2 are normal, no murmur Gastrointestinal: Abdomen is soft, non distended, non tender, BS present. Musculoskeletal: No edema. No joint deformities. RUE 5/5, LUE 5/5, BLE 5/5 Neurologic: No focal neurological deficit. Mental Status: A&O x3, normal affect Skin: Warm, dry LABORATORY DATA, IMAGING STUDIES, MICROBIOLOGY: Please see below. DVT prophylaxis ordered?: Y ASSESSMENT AND PLAN: She'll Fish is an 89-year-old gentleman with a past medical history of GERD, presented with shortness of breath secondary to an necrotizing left-sided pneumonia on CT chest with possible aspiration. He is treated with IV azithromycin, ceftriaxone and metronidazole. Repeat CT scan shows worsening left-sided pleural effusion. Discussed with Dr. Ovalles. Pleural effusion is new, too small for aspiration. Concern for necrotizing pneumonia. Recommend continuing IV antibiotics and monitoring for fevers and leukocytosis. # CAP with possible aspiration: Improved. - IV Azithromycin and Ceftriaxone for CAP including atypical coverage. As well as IV metronidazole for possible aspiration. - COMPARISON SHOPPER eval, no concern for aspiration. - CT chest reviewed. Repeat CT 01/12 showing increase in L pleural effusion. - per Dr. Ovalles, obtain PA/Lateral CXR, repeat in am to monitor for progression. Pleural effusion too small for sampling. - PRN Duonebs q4h - BCx, UCx, sputum culture - Urine strep Ag and Legionella - DC IVF - Robitussin Q4H. - Urinalysis - Tylenol PRN fever. # ANEL: Resolved. IVFs. Monitor. Avoid nephrotoxins. # GERD: Can continue home omeprazole. # DVT prophylaxis: Heparin VS, I&O, 24H, Fishbone Vital Signs/I&O Vital Signs Date Time Temp Pulse Resp B/P (MAP) Pulse Ox O2 Delivery O2 Flow Rate FiO2 01/14/20 06:00 98.3 85 22 133/67 (89) 93 Room Air I&O- Last 24 Hours up to 6 AM 01/14/20 06:00 Intake Total 1080 ml Output Total 0 ml Balance 1080 ml Laboratory Data 24H LABS Laboratory Tests 2 01/14/20 05:17: Nucleated Red Blood Cells % (auto) 0.0, Anion Gap 8, Glomerular Filtration Rate > 60.0, Calcium Level 8.0L CBC/BMP Laboratory Tests 01/14/20 05:17 Microbiology Microbiology 01/11/20 Blood Culture - Preliminary, Resulted No Growth after 48 hours. All Specime... 01/11/20 Respiratory Virus Panel (PCR) (KOBE) - Final, Complete 01/11/20 Blood Culture - Preliminary, Resulted No Growth after 72 hours. All specime... GENOVEVA CLARKE MD Jan 14, 2020 13:43
[2020-01-14] MEDS: AZITHROMYCIN INJ 500 MG, VIAL MATE ADAPTER 1 EACH in D5W 250 ML IV SCH (14:09)
[2020-01-14 22:00] VITALS: BP 131/67
[2020-01-15] MEDS: HEPARIN SOD (PORCINE) 5000UNITS/ML 1ML VIAL/SYRINGE SC SCH ×3 (05:30→21:01)
[2020-01-15] MEDS: metroNIDAZOLE 500 MG in IV 1 EA IV SCH ×2 (05:30→17:37)
[2020-01-15 06:00] VITALS: BP 132/76
[2020-01-15 06:19] LABS: HEMATOCRIT 32.3 % (42.0-52.0); HEMOGLOBIN 10.6 g/dl (13.5-17.5); MEAN CORPUSCULAR HEMOGLOBIN 28.2 pg (27.0-33.0); MEAN CORPUSCULAR HGB CONC 32.8 g/dl (32.0-36.5); MEAN CORPUSCULAR VOLUME 85.9 fl (80.0-96.0); PLATELET COUNT, AUTOMATED 319 10^3/uL (150-450); RED BLOOD COUNT 3.76 10^6/uL (4.30-6.10); WHITE BLOOD COUNT 5.9 10^3/uL (4.0-10.0)
[2020-01-15 06:49] LABS: BLOOD UREA NITROGEN 12 MG/DL (7-18); CALCIUM LEVEL 7.9 MG/DL (8.8-10.2); CARBON DIOXIDE LEVEL 24 MEQ/L (21-32); CHLORIDE LEVEL 113 MEQ/L (98-107); CREATININE FOR GFR 0.87 MG/DL (0.70-1.30); GLOMERULAR FILTRATION RATE > 60.0 (>35); GLUCOSE, FASTING 99 MG/DL (70-100); POTASSIUM SERUM 3.4 MEQ/L (3.5-5.1); SODIUM LEVEL 144 MEQ/L (136-145)
[2020-01-15] MEDS: OMEPRAZOLE 20 MG CAP PO SCH (08:03)
--- NOTE | 2020-01-15 11:30 | IPNPDOC ---
Date Seen The patient was seen on 01/15/20. Progress Note SUBJECTIVE: Patient was seen and examined at bedside this morning. Does not report subjective chills. He also denies chest pain, shortness of breath, nausea, vomiting and diarrhea. Does have a mild to mod cough, productive of yellow sputum. No acute overnight events per nurse. He remains afebrile. Vital signs stable. OBJECTIVE PHYSICAL EXAMINATION: VITAL SIGNS: Please see below. Constitutional: Awake and alert, in no apparent distress ENT: Sclera are clear. Mucosa is moist. Respiratory: L lung bases - rales. No respiratory distress. No use of accessory muscles. Cardiovascular: RRR S1 and S2 are normal, no murmur Gastrointestinal: Abdomen is soft, non distended, non tender, BS present. Musculoskeletal: No edema. No joint deformities. RUE 5/5, LUE 5/5, BLE 5/5 Neurologic: No focal neurological deficit. Mental Status: A&O x3, normal affect Skin: Warm, dry LABORATORY DATA, IMAGING STUDIES, MICROBIOLOGY: Please see below. DVT prophylaxis ordered?: Y ASSESSMENT AND PLAN: She'll Fish is an 89-year-old gentleman with a past medical history of GERD, presented with shortness of breath secondary to an necrotizing left-sided pneumonia on CT chest with possible aspiration. He is treated with IV azithromycin, ceftriaxone and metronidazole. Repeat CT scan shows worsening left-sided pleural effusion. Discussed with Dr. Ovalles. Pleural effusion is new, too small for aspiration. Concern for necrotizing pneumonia. Recommend continuing IV antibiotics and monitoring for fevers and leukocytosis. # CAP with possible aspiration: Improved. - IV Azithromycin and Ceftriaxone for CAP including atypical coverage. As well as IV metronidazole for possible aspiration. - INDUSTRIAL MAINTENANCE MILLWRIGHT eval, no concern for aspiration. - CT chest reviewed. Repeat CT 01/12 showing increase in L pleural effusion. - per Dr. Ovalles, obtain PA/Lateral CXR, repeat in am to monitor for progression. Pleural effusion too small for sampling. - CXR showing persistent LLL consolidation. - discussed with Dr. Castrejon today, patient has large mucous impaction of LLL bronchi, concern for necrotizing pneumonia, risk for development of abscess surrounding mucous plug. Recommend chest PT, PEP. If has not expectorated plug, will consult for possible bronchoscopy. - PRN Duonebs q4h - Bcx prelim negative - Sputum culture pending. - Urine strep Ag and Legionella - DC IVF - Robitussin Q4H. - Urinalysis - Tylenol PRN fever. # ANEL: Resolved. IVFs. Monitor. Avoid nephrotoxins. # GERD: Can continue home omeprazole. # DVT prophylaxis: Heparin VS, I&O, 24H, Fishbone Vital Signs/I&O Vital Signs Date Time Temp Pulse Resp B/P (MAP) Pulse Ox O2 Delivery O2 Flow Rate FiO2 01/15/20 06:00 98.2 62 20 132/76 (94) 95 Room Air I&O- Last 24 Hours up to 6 AM 01/15/20 06:00 Intake Total 1100 ml Output Total 375 ml Balance 725 ml Laboratory Data 24H LABS Laboratory Tests 2 01/14/20 18:03: Methicillin-Resist S.aureus DNA PCR NOT DETECTED 01/14/20 23:30: 01/15/20 05:24: Nucleated Red Blood Cells % (auto) 0.0, Anion Gap 7L, Glomerular Filtration Rate > 60.0, Calcium Level 7.9L CBC/BMP Laboratory Tests 01/15/20 05:24 Microbiology Microbiology 01/14/20 Gram Stain - Final, Resulted 01/14/20 Sputum Culture, Resulted Pending 01/11/20 Blood Culture - Preliminary, Resulted No Growth after 72 hours. All specime... 01/11/20 Respiratory Virus Panel (PCR) (KO[facility]) - Final, Complete 01/11/20 Blood Culture - Preliminary, Resulted No Growth after 72 hours. All specime... GENOVEVA CLARKE MD Jan 15, 2020 11:30
[2020-01-15] MEDS: cefTRIAXone SOD 1 GM in D5W MINI-BAG PLUS 50 ML IV SCH (12:36)
[2020-01-15] MEDS: AZITHROMYCIN INJ 500 MG, VIAL MATE ADAPTER 1 EACH in D5W 250 ML IV SCH (13:17)
[2020-01-15 14:32] VITALS: BP 124/60
[2020-01-15 22:00] VITALS: BP 117/93
[2020-01-16 01:00] VITALS: O2SAT 95
[2020-01-16] MEDS: HEPARIN SOD (PORCINE) 5000UNITS/ML 1ML VIAL/SYRINGE SC SCH ×3 (05:18→20:50)
[2020-01-16] MEDS: metroNIDAZOLE 500 MG in IV 1 EA IV SCH ×2 (05:18→16:39)
[2020-01-16 06:00] VITALS: BP 143/79
[2020-01-16 06:05] LABS: HEMOGLOBIN 11.3 g/dl (13.5-17.5); MEAN CORPUSCULAR HEMOGLOBIN 27.7 pg (27.0-33.0); MEAN CORPUSCULAR HGB CONC 32.3 g/dl (32.0-36.5); MEAN CORPUSCULAR VOLUME 85.8 fl (80.0-96.0); PLATELET COUNT, AUTOMATED 356 10^3/uL (150-450); RED BLOOD COUNT 4.08 10^6/uL (4.30-6.10); WHITE BLOOD COUNT 6.8 10^3/uL (4.0-10.0)
[2020-01-16 06:31] LABS: BLOOD UREA NITROGEN 10 MG/DL (7-18); CALCIUM LEVEL 8.3 MG/DL (8.8-10.2); CARBON DIOXIDE LEVEL 24 MEQ/L (21-32); CHLORIDE LEVEL 113 MEQ/L (98-107); GLOMERULAR FILTRATION RATE > 60.0 (>35); GLUCOSE, FASTING 101 MG/DL (70-100); POTASSIUM SERUM 3.2 MEQ/L (3.5-5.1); SODIUM LEVEL 143 MEQ/L (136-145)
[2020-01-16] MEDS: OMEPRAZOLE 20 MG CAP PO SCH (07:54)
[2020-01-16] MEDS ORDERED: POTASSIUM CHLORIDE 10 MEQ SR TABLET PO ONE ×2 (08:00→12:00)
[2020-01-16 09:30] VITALS: O2SAT 98
[2020-01-16] MEDS: cefTRIAXone SOD 1 GM in D5W MINI-BAG PLUS 50 ML IV SCH (12:20)
[2020-01-16] MEDS: AZITHROMYCIN INJ 500 MG, VIAL MATE ADAPTER 1 EACH in D5W 250 ML IV SCH (13:56)
[2020-01-16 14:00] VITALS: BP 128/82
[2020-01-16 16:04] LABS: BLOOD UREA NITROGEN 10 MG/DL (7-18); CALCIUM LEVEL 8.2 MG/DL (8.8-10.2); CARBON DIOXIDE LEVEL 27 MEQ/L (21-32); CHLORIDE LEVEL 109 MEQ/L (98-107); GLOMERULAR FILTRATION RATE > 60.0 (>35); GLUCOSE, FASTING 125 MG/DL (70-100); POTASSIUM SERUM 3.6 MEQ/L (3.5-5.1); SODIUM LEVEL 143 MEQ/L (136-145)
--- NOTE | 2020-01-16 17:55 | IPNPDOC ---
Date Seen The patient was seen on 01/16/20. Progress Note SUBJECTIVE: Patient was seen and examined at bedside this morning. Does not report subjective chills. He also denies chest pain, shortness of breath, nausea, vomiting and diarrhea. No acute overnight events per nurse. He remains afebrile. Vital signs stable. Significant increase in sputum/expectorant after PT initiation. OBJECTIVE PHYSICAL EXAMINATION: VITAL SIGNS: Please see below. Constitutional: Awake and alert, in no apparent distress ENT: Sclera are clear. Mucosa is moist. Respiratory: L lung bases - rales. No respiratory distress. No use of accessory muscles. Cardiovascular: RRR S1 and S2 are normal, no murmur Gastrointestinal: Abdomen is soft, non distended, non tender, BS present. Musculoskeletal: No edema. No joint deformities. RUE 5/5, LUE 5/5, BLE 5/5 Neurologic: No focal neurological deficit. Mental Status: A&O x3, normal affect Skin: Warm, dry LABORATORY DATA, IMAGING STUDIES, MICROBIOLOGY: Please see below. DVT prophylaxis ordered?: Y ASSESSMENT AND PLAN: She'll Fish is an 89-year-old gentleman with a past medical history of GERD, presented with shortness of breath secondary to an necrotizing left-sided pneumonia on CT chest with possible aspiration. He is treated with IV azithromycin, ceftriaxone and metronidazole. Repeat CT scan shows worsening left-sided pleural effusion. Discussed with Dr. Ovalles. Pleural effusion is new, too small for aspiration. Concern for necrotizing pneumonia. Recommend continuing IV antibiotics and monitoring for fevers and leukocytosis. # CAP with possible aspiration: Improved. - IV Azithromycin and Ceftriaxone for CAP including atypical coverage. As well as IV metronidazole for possible aspiration. - GAS GENERATOR OPERATOR eval, no concern for aspiration. - CT chest reviewed. Repeat CT 01/12 showing increase in L pleural effusion. - per Dr. Ovalles, obtain PA/Lateral CXR, repeat in am to monitor for progression. Pleural effusion too small for sampling. - CXR showing persistent LLL consolidation. - c/w chest PT (acapella/PEP) to assist with expectoration. Discussed with Dr. Castrejon, patient to follow up with pulm in 2-[address] to assess for improvement in consolidation. - will also assist patient with establishing a PCP. Needs close follow up. - PRN Duonebs q4h - Bcx prelim negative - Sputum culture pending. - Urine strep Ag and Legionella - DC IVF - Robitussin Q4H. - Urinalysis - Tylenol PRN fever. # ANEL: Resolved. IVFs. Monitor. Avoid nephrotoxins. # GERD: Can continue home omeprazole. # DVT prophylaxis: Heparin VS, I&O, 24H, Fishbone Vital Signs/I&O Vital Signs Date Time Temp Pulse Resp B/P (MAP) Pulse Ox O2 Delivery O2 Flow Rate FiO2 01/16/20 14:00 97.6 68 22 128/82 (97) 98 Room Air I&O- Last 24 Hours up to 6 AM 01/16/20 06:00 Intake Total 1660 ml Output Total 620 ml Balance 1040 ml Laboratory Data 24H LABS Laboratory Tests 2 01/16/20 05:47: Nucleated Red Blood Cells % (auto) 0.0, Anion Gap 6L, Glomerular Filtration Rate > 60.0, Calcium Level 8.3L 01/16/20 15:33: Anion Gap 7L, Glomerular Filtration Rate > 60.0, Calcium Level 8.2L CBC/BMP Laboratory Tests 01/16/20 05:47 01/16/20 15:33 Microbiology Microbiology 01/15/20 Gram Stain - Final, Resulted 01/15/20 Sputum Culture, Resulted Pending 01/14/20 Gram Stain - Final, Complete 01/14/20 Sputum Culture - Final, Complete Yeast Like Organism 01/11/20 Blood Culture - Final, Complete NO GROWTH AFTER 5 DAYS 01/11/20 Respiratory Virus Panel (PCR) ([facility]) - Final, Complete 01/11/20 Blood Culture - Final, Complete NO GROWTH AFTER 5 DAYS GENOVEVA CLARKE MD Jan 16, 2020 17:55
[2020-01-16 22:00] VITALS: BP 142/80
[2020-01-17] MEDS: metroNIDAZOLE 500 MG in IV 1 EA IV SCH (04:53)
[2020-01-17] MEDS: HEPARIN SOD (PORCINE) 5000UNITS/ML 1ML VIAL/SYRINGE SC SCH ×2 (04:53→13:12)
[2020-01-17 06:00] VITALS: BP 145/80
[2020-01-17 06:36] LABS: HEMATOCRIT 35.7 % (42.0-52.0); HEMOGLOBIN 11.6 g/dl (13.5-17.5); MEAN CORPUSCULAR HEMOGLOBIN 28.1 pg (27.0-33.0); MEAN CORPUSCULAR HGB CONC 32.5 g/dl (32.0-36.5); MEAN CORPUSCULAR VOLUME 86.4 fl (80.0-96.0); PLATELET COUNT, AUTOMATED 382 10^3/uL (150-450); RED BLOOD COUNT 4.13 10^6/uL (4.30-6.10); WHITE BLOOD COUNT 7.4 10^3/uL (4.0-10.0)
[2020-01-17 07:06] LABS: BLOOD UREA NITROGEN 8 MG/DL (7-18); CALCIUM LEVEL 8.4 MG/DL (8.8-10.2); CARBON DIOXIDE LEVEL 25 MEQ/L (21-32); CHLORIDE LEVEL 109 MEQ/L (98-107); CREATININE FOR GFR 0.89 MG/DL (0.70-1.30); GLOMERULAR FILTRATION RATE > 60.0 (>35); GLUCOSE, FASTING 91 MG/DL (70-100); POTASSIUM SERUM 4.2 MEQ/L (3.5-5.1); SODIUM LEVEL 140 MEQ/L (136-145)
[2020-01-17] MEDS: OMEPRAZOLE 20 MG CAP PO SCH (09:33)
[2020-01-17] MEDS ORDERED: AUGM875T28 PO (12:41)
[2020-01-17] MEDS ORDERED: OMEP-218 PO (12:41)
[2020-01-17] MEDS ORDERED: GUAI100S51 PO (12:41)
--- NOTE | 2020-01-17 12:51 | DS.PDOC ---
Discharge Summary General Date of Admission Jan 11, 2020 at 13:39 Date of Discharge 01/17/2020 Attending Physician: GENOVEVA CLARKE MD Discharge Summary PROCEDURES PERFORMED DURING STAY: [None]. ADMITTING DIAGNOSES: Community acquired pneumonia Possible aspiration pneumonia Acute kidney injury GERD DISCHARGE DIAGNOSES: Community acquired pneumonia Possible aspiration pneumonia Acute kidney injury GERD COMPLICATIONS/CHIEF COMPLAINT: Pneumonia. HISTORY OF PRESENT ILLNESS:89-year-old male with no known past medical presents to [facility] after starting to feel SOB on Monday which has gotten progressively worse during the course of the week. Since he started feeling a little disoriented and getting dizzy spells. He endorses a cough with yellow sputum. He endorsed subjective fevers at home and chills. In the ED patient was started on IV antibiotics and IV fluids. HOSPITAL COURSE: Mr. Winslow was admitted for large left-sided pneumonia with a substantial left bronchial mucous plug. He was treated with a combination of IV azithromycin, IV metronidazole and IV ceftriaxone since January 10. He remained afebrile and did not have elevation in white blood cells throughout his entire admission. Patient was examined by speech therapy, no concerns regarding swallow mechanism identified. No risk for aspiration. Discussed the case with thoracic surgery and pulmonology given that he had a small left-sided pleural effusion. Pleural effusion too small to sample. Per pulmonology recommendation chest PT with PEP and mechanical PT to assist with expectoration of mucus and sputum. Patient discharged with 7 day course of Augmentin. As patient did not have a PCP, a PCP was provided for him. He understands that he needs to follow up, and requires surveillance imaging to ensure resolution of the pneumonia. He understands to return to the hospital if he develops worsening fevers, cough, shortness of breath. DISCHARGE MEDICATIONS: Please see below. ALLERGIES: Please see below. PHYSICAL EXAMINATION ON DISCHARGE: VITAL SIGNS: Please see below. Constitutional: Awake and alert, in no apparent distress ENT: Sclera are clear. Mucosa is moist. Respiratory: L lung bases - rales. No respiratory distress. No use of accessory muscles. Cardiovascular: RRR S1 and S2 are normal, no murmur Gastrointestinal: Abdomen is soft, non distended, non tender, BS present. Musculoskeletal: No edema. No joint deformities. RUE 5/5, LUE 5/5, BLE 5/5 Neurologic: No focal neurological deficit. Mental Status: A&O x3, normal affect Skin: Warm, dry LABORATORY DATA: Please see below. IMAGING: CT chest wo contrast 01/10/20: FINDINGS: Lungs: Multifocal peribronchial airspace opacities and nodules are present throughout the left upper lobe and lingula. There is partial collapse of the left lower lobe with retraction of the oblique fissure, although with multiple air bronchograms and loculated opacities within the otherwise collapsed lower lobe. Pleural space: Small left pleural effusion. Heart: Aortic annular and coronary artery calcifications are present. Mediastinal space: Secretions layer in the trachea. Aorta: Moderate aortic and branch vessel atherosclerosis. Lymph nodes: No enlarged lymph nodes. Bones/joints: No severe osseous spinal canal stenosis. Multilevel overall moderate degenerative findings. Soft tissues: There is a 1.5 cm anterior chest wall cutaneous cyst overlying the manubrium. IMPRESSION: 1. Multifocal pneumonia throughout the left lung, possibly aspiration related given the layering tracheal secretions. Additionally, there is near complete atelectatic collapse of the left lower lobe with heterogeneous attenuation and loculated appearance which likely represents a superimposed lobar pneumonia, with a small parapneumonic effusion. 2. Recommend follow-up chest CT after treatment given extent of nodularity to assess for interval resolution. CT chest wo contrast 12/24/19: Tracheobronchial tree: Mucous impaction of the left lower lobe bronchi. Lungs: Mild multifocal consolidations in the left upper lobe. More dense consolidation in the lingula. Dense consolidation of the left lower lobe with some areas of air bronchograms. Pleural space: Moderate left pleural effusion. No right pleural effusion. No pneumothorax. Heart: No cardiomegaly. Mild pericardial effusion. Coronary arteries: Severe coronary artery calcification. Aorta: Moderate calcified atherosclerotic disease. No aortic aneurysm. Lymph nodes: Multiple small mediastinal nodes. Bones/joints: Moderate degenerative spine. No acute fracture. Mild degenerative changes of the left shoulder. Soft tissues: Sebaceous cyst in the subcutaneous tissue anterior to the manubrium Sebaceous cyst in the subcutaneous tissue anterior to the manubrium measuring 1.3 x 1.8 x 2.0 cm. IMPRESSION: 1. Consolidations as described. 2. Mucous impaction of the left lower lobe bronchi. 3. Moderate left pleural effusion. Increased from prior. PROGNOSIS: good ACTIVITY: As tolerated DIET: regular DISCHARGE PLAN: Home with PCP and cup setter lockstitch follow-up DISPOSITION: Home DISCHARGE INSTRUCTIONS: 1. Please follow-up with your primary care provider within 3-5 days. You have been established with a new PCP. 2. Please obtain referral to pulmonology office from her primary care provider. 3. , He will require repeat follow-up imaging to ensure resolution of her pneumonia. Recommend CT scan in 4-6 weeks. 4. Please continue to take Augmentin twice per day for an additional 7 days. 5. If you develop worsening fevers, worsening cough, worsening sputum with blood, chest pain, shortness of breath or otherwise worsening of his symptoms. Please return to the emergency department or call 911. ITEMS TO FOLLOWUP ON ON OUTPATIENT: 1. Repeat chest imaging to ensure resolution of pneumonia, rec CT chest 4-6 weeks. CXR in 1-2 weeks. DISCHARGE CONDITION: [Stable]. TIME SPENT ON DISCHARGE: Greater than 30 minutes. Vital Signs/I&Os Vital Signs Date Time Temp Pulse Resp B/P (MAP) Pulse Ox O2 Delivery O2 Flow Rate FiO2 01/17/20 06:00 99.0 72 18 145/80 (101) 96 Room Air I&O- Last 24 Hours up to 6 AM 01/17/20 05:59 Intake Total 1355 ml Output Total 150 ml Balance 1205 ml Laboratory Data Labs 24H Laboratory Tests 2 01/16/20 15:33: Anion Gap 7L, Glomerular Filtration Rate > 60.0, Calcium Level 8.2L 01/17/20 05:38: Anion Gap 6L, Glomerular Filtration Rate > 60.0, Calcium Level 8.4L, Nucleated Red Blood Cells % (auto) 0.0 CBC/BMP Laboratory Tests 01/16/20 15:33 01/17/20 05:38 Microbiology Microbiology 01/15/20 Gram Stain - Final, Complete 01/15/20 Sputum Culture - Final, Complete Yeast Like Organism 01/14/20 Gram Stain - Final, Complete 01/14/20 Sputum Culture - Final, Complete Yeast Like Organism 01/11/20 Blood Culture - Final, Complete NO GROWTH AFTER 5 DAYS 01/11/20 Respiratory Virus Panel (PCR) (KOBE) - Final, Complete 01/11/20 Blood Culture - Final, Complete NO GROWTH AFTER 5 DAYS Discharge Medications Scheduled Amoxicillin/Potassium Clav (Augmentin 875-125 Tablet) 1 Each Tablet, 1 TAB PO BID Omeprazole (Omeprazole) 20 Mg Capsule.dr, 20 MG PO DAILY Scheduled PRN Guaifenesin (Guaifenesin) 100 Mg/5 Ml Liquid, 5 ML PO Q4HP PRN for COUGH Allergies Coded Allergies: No Known Allergies (Verified , 07/24/19) GENOVEVA CLARKE MD Jan 17, 2020 12:51
[2020-01-17] MEDS: cefTRIAXone SOD 1 GM in D5W MINI-BAG PLUS 50 ML IV SCH (13:12)
[2020-01-17] MEDS: AZITHROMYCIN INJ 500 MG, VIAL MATE ADAPTER 1 EACH in D5W 250 ML IV SCH (13:55)
[2020-01-17 17:13] LABS: BODY FLUID CULTURE Not indicated. (.); LEGIONELLA ANTIGEN URINE Negative (Negative); ORGANISM ID Not indicated. (.); SPECIMEN SOURCE Urine (.); URINE STREP PNEUMONIAE ANTIGEN Negative (Negative)
--- NOTE | 2020-01-21 11:12 | REP ---
CHEST X-RAY: 2-VIEWS HISTORY: Pneumonia. COMPARISON: Chest x-ray 01/15/2020. FINDINGS: Extensive consolidation persists in the distribution of the left lower lobe. There is some consolidation in the lingula as well. There is slight blunting of the left lateral pleural angle. The left diaphragm is obscured on the lateral radiograph as before. No new infiltrate is seen, right lung remains clear. MTDD
--- NOTE | 2020-01-21 11:13 | REP ---
PORTABLE CHEST X-RAY: SINGLE VIEW HISTORY: Pneumonia. FINDINGS: Extensive consolidation persists in the left lower lobe and lingular distribution obscuring the left hemidiaphragm and the left heart border. No infiltrate is noted on the right. Findings are radiographically unchanged. MTDD
--- NOTE | 2020-01-21 11:14 | REP ---
CHEST X-RAY: TWO-VIEWS HISTORY: Pneumonia. COMPARISON: Chest x-ray 09/16/2017. Chest CT study 01/11/2020 and 01/13/2020. CHEST X-RAY FINDINGS: There is extensive consolidation throughout the distribution of the left lower lobe essentially lobar pneumonia. There are modeled densities in the infrahilar region correlating with the necrotic air space changes on CT study. There are some increased markings in the distribution of the lingula. The right lung remains clear. The right pleural angles are sharp. The left diaphragm and pleural angles are obscured. IMPRESSION: Persistent essentially lobar consolidation and collapse left lower lobe as on CT study. MTDD
--- NOTE | 2020-01-21 11:16 | REP ---
CHEST X-RAY: 2-VIEWS HISTORY: Pneumonia. COMPARISON: Chest x-ray 01/14/2020. FINDINGS: Extensive consolidation persists throughout the left lower lobe and to some degree, the lingular segment of the left upper lobe consistent with left base pneumonia. This is essentially unchanged from yesterdays radiograph. Right lung remains clear. Heart is not enlarged. IMPRESSION: Extensive consolidation/pneumonia left base. MTDD
== END 2020-01-17 15:06 | disposition home or self-care (01) | DRG 178 ==
LOC: M ED 11:29 → M ED INP 13:39 → ENRESERV 14:13 → M MSPAV 15:34
PROVIDERS: ADMIT Family Medicine; ATTEND Family Medicine
DX: J69.0 Pneumonitis due to inhalation of food and vomit (principal); N17.9 Acute kidney failure, unspecified; K21.9 Gastro-esophageal reflux disease without esophagitis; Z90.49 Acquired absence of other specified parts of digestive tract; F17.200 Nicotine dependence, unspecified, uncomplicated; Z79.899 Other long term (current) drug therapy; Z20.828 Contact with and (suspected) exposure to other viral communicable diseases

== ENCOUNTER → 2020-01-24 | Outpatient (CLI) | payer MEDICARE ==
[~2020-01-24] MED LIST changes: +AUGM875T28 PO; +GUAI100S51 PO; +OMEP-218 PO
[2020-01-24 16:55] LABS: BASO # 0.1 10^3/uL (0.0-0.2); BASO % 0.7 % (0.0-1.0); EOS # 0.1 10^3/uL (0.0-0.5); EOS % 1.7 % (0.0-3.0); HEMATOCRIT 43.1 % (42.0-52.0); HEMOGLOBIN 13.5 g/dl (13.5-17.5); LYMPH % 24.2 % (24.0-44.0); MEAN CORPUSCULAR HEMOGLOBIN 28.1 pg (27.0-33.0); MEAN CORPUSCULAR HGB CONC 31.3 g/dl (32.0-36.5); MEAN CORPUSCULAR VOLUME 89.8 fl (80.0-96.0); MONO # 0.8 10^3/uL (0.0-0.8); MONO % 9.6 % (0.0-5.0); NEUTROPHILS # 5.1 10^3/uL (1.5-8.5); NEUTROPHILS % 63.2 % (36.0-66.0); PLATELET COUNT, AUTOMATED 454 10^3/uL (150-450); WHITE BLOOD COUNT 8.1 10^3/uL (4.0-10.0)
[2020-01-24 17:21] LABS: ALBUMIN 3.1 GM/DL (3.2-5.2); ALT/SGPT 18 U/L (12-78); BILIRUBIN,TOTAL 0.4 MG/DL (0.2-1.0); BLOOD UREA NITROGEN 19 MG/DL (7-18); CALCIUM LEVEL 9.5 MG/DL (8.8-10.2); CARBON DIOXIDE LEVEL 29 MEQ/L (21-32); CHLORIDE LEVEL 103 MEQ/L (98-107); CREATININE FOR GFR 1.11 MG/DL (0.70-1.30); GLOMERULAR FILTRATION RATE > 60.0 (>35); GLUCOSE, FASTING 87 MG/DL (70-100); POTASSIUM SERUM 4.7 MEQ/L (3.5-5.1); SODIUM LEVEL 137 MEQ/L (136-145); TOTAL PROTEIN 7.8 GM/DL (6.4-8.2)
--- NOTE | 2020-01-29 11:12 | REP ---
CHEST X-RAY: 2-VIEWS HISTORY: Pneumonia. COMPARISON CHEST X-RAY: 01/16/2020 and 01/15/2020. FINDINGS: There is persistent fairly dense opacification in the left lower lobe lung parenchyma partially obscuring the diaphragm and obscuring the descending thoracic aorta. This is quite similar to its appearance on 01/15/2020. CT study from 01/13/2020 shows extensive necrotic pneumonia changes in the left lower lobe and to some degree in the lingula. IMPRESSION: Persistent mottled necrotic infiltrate left lower lobe and lingula. Similar to prior studies. No new infiltrate seen. MTDD
== END ==
LOC: M WUC 11:17
PROVIDERS: ATTEND Physician Assistant
DX: J18.9 Pneumonia, unspecified organism (principal)

== ENCOUNTER → 2020-02-18 | Outpatient (REF) | payer MEDICARE | LOC: M LAB REF 17:15 | PROVIDERS: ATTEND Internal Medicine Pulmonary Disease | DX: J18.1 Lobar pneumonia, unspecified organism (principal) ==

== ENCOUNTER → 2020-03-10 | Outpatient (CLI) | payer MEDICARE ==
--- NOTE | 2020-03-10 08:59 | REP ---
INDICATION: ABNORMAL FINDING OF LUNG FIELD COMPARISON: 01/13/2020 TECHNIQUE: Axial noncontrast images from the thoracic inlet to the upper abdomen with coronal and sagittal reformations. This CT examination was performed using the following dose reduction techniques: Automated exposure control, adjustment of mA and/or kv according to the patient's size, and use of iterative reconstruction technique. FINDINGS: In comparison with prior examination, there is mildly improved aeration to the left lower lung zone with continued large area of ground-glass opacity and smaller partial collapse of the left lower lobe along with a small left pleural effusion and mucous plugging of the 2nd order left lower lobe bronchus. Patchy bilateral alveolar infiltrates within the left upper lobe, lingula, and right lobes however appear slightly more pronounced and there is a new small area of consolidation along the posterior aspect of the right middle lobe. No pneumothorax. Reactive mediastinal and hilar adenopathy with lymph nodes measuring up to approximately 10 mm are again identified. Further evaluation of the mediastinum demonstrates stable atherosclerotic changes to the thoracic aorta and coronary arteries without aortic aneurysm or cardiomegaly. No pericardial effusion. Musculoskeletal structures demonstrate age-related degenerative changes. Upper abdomen demonstrates normal bilateral adrenal glands along with moderately distended gallbladder. IMPRESSION: 1. Some element of improved aeration to the left lower lung zone with large area of ground-glass opacity now replacing portions of the previously noted collapsed left lower lobe. Continued evidence for partial collapse to the left lower lobe and small left pleural effusion. 2. Patchy bilateral alveolar infiltrates involving the aerated left mid to upper lung zone and scattered within the right hemithorax are slightly more pronounced and increased. 3. Overall findings consistent with continued multifocal possibly aspiration pneumonia. <Electronically signed by Romel Eng > 03/10/20 [id number]
== END ==
LOC: M RAD 07:05
PROVIDERS: ATTEND Internal Medicine Pulmonary Disease
DX: R91.8 Other nonspecific abnormal finding of lung field (principal)

== ENCOUNTER → 2020-03-18 | Outpatient (REF) | payer MEDICARE | LOC: M LAB REF 17:00 | PROVIDERS: ATTEND Internal Medicine Pulmonary Disease | DX: J18.1 Lobar pneumonia, unspecified organism (principal) ==